=== PATIENT | male | born 1960 | race American Indian/Alaskan Native ===

== ENCOUNTER 2020-10-02 13:49 | Emergency (ER) | payer SELFPAY ==
[2020-10-02 14:45] VITALS: BP 140/93
--- NOTE | 2020-10-02 15:28 | XRay Report ---
CHEST 2 VIEWS INDICATION / CLINICAL INFORMATION: Chest pain. COMPARISON: None available. FINDINGS: SUPPORT DEVICES: None. HEART / MEDIASTINUM: No significant abnormality. LUNGS / PLEURA: No significant pulmonary or pleural abnormality. No pneumothorax. ADDITIONAL FINDINGS: No significant additional findings. IMPRESSION: 1. No acute abnormality of the chest. Signer Name: Jake Little MD Signed: 10/02/2020 3:23 PM Workstation Name: [id number]
--- NOTE | 2020-10-02 17:42 | Emergency Department Report ---
Blank Doc - Documentation Documentation: 51-year-old male with no sniffing past medical history presents emerged depart ment via the urgent care for an abnormal chest x-ray which showed a a possible viral process but more concerning he has been having some polydipsia and polyuria over the past several days with no known history of diabetes. Examination we did find the [id number] blood sugar to be over 550 This initial assessment/diagnostic orders/clinical plan/treatment(s) is/are subject to change based on patients health status, clinical progression and re- assessment by fellow clinical providers in the ED. Further treatment and workup at subsequent clinical providers discretion. Patient/guardian urged not to elope from the ED as their condition may be serious if not clinically assessed and managed. Initial orders include: We will obtain a CBC BMP and urinalysis will evaluate him for a hyperosmolar nonketotic state versus DKA versus just hypoglycemia and treat accordingly
[2020-10-02 18:26] LABS: Basophils % (Auto) 0.4 % (0.0-1.8); Eosinophils % (Auto) 0.4 % (0.0-4.3); Hematocrit 42.8 % (35.5-45.6); Hemoglobin 14.6 gm/dl (11.8-15.2); Lymphocytes # (Auto) 1.6 K/mm3 (1.2-5.4); Lymphocytes % (Auto) 21.2 % (13.4-35.0); Mean Corpuscular HGB Conc 34 % (32-34); Mean Corpuscular Volume 91 fl (84-94); Monocytes # (Auto) 0.6 K/mm3 (0.0-0.8); Monocytes % (Auto) 8.5 % (0.0-7.3); Platelet Count 302 K/mm3 (140-440); Red Blood Count 4.72 M/mm3 (3.65-5.03)
[2020-10-02 18:37] LABS: BUN/Creatinine Ratio 15; Blood Urea Nitrogen 17 mg/dL (9-20); Hemolysis Index 6
[2020-10-02 18:55] LABS: Bilirubin,Urine NEG (Negative); Blood,Urine NEG (Negative); Color,Urine Colorless (Yellow); Mucus,Urine FEW /HPF; Protein,Urine <15 mg/dL mg/dL (Negative); Urobilinogen,Urine < 2.0 mg/dL (<2.0); WBC,Urine < 1.0 /HPF (0.0-6.0)
== END 2020-10-03 | disposition left against medical advice (07) ==
LOC: ED 13:49
DX: R11.0 Nausea (principal); Z53.21 Procedure and treatment not carried out due to patient leaving prior to being seen by health care provider
CPT/HCPCS: 36415; 71046; 80048; 81001; 82962; 85025